=== PATIENT | female | born 1945 | race Caucasian/White ===

== ENCOUNTER 2017-07-15 16:10 | Outpatient (CLI) | payer MEDICARE | END 2017-07-15 16:11 | disposition home or self-care (01) | LOC: BICMAMMO 16:10 | PROVIDERS: ATTEND Internal Medicine | DX: N63.10 Unspecified lump in the right breast, unspecified quadrant (principal) | CPT/HCPCS: 76642; 77066; G0279 ==

== ENCOUNTER 2018-03-04 10:43 | Outpatient (CLI) | payer MEDICARE ==
--- NOTE | 2018-03-04 12:15 | ULT ---
LIMITED RIGHT BREAST ULTRASOUND: 03/04/2018 PROVIDED CLINICAL HISTORY: Follow up right breast mass. COMPARISON: 07/15/2017 and 06/16/2016 FINDINGS: There is a circumscribed, oval, wider than tall, hypoechoic mass again demonstrated at the 12 o'clock position of the right breast. This appears similar to the prior examinations. No shadowing or othe r concerning findings are evident. This may reflect an intramammary lymph node. IMPRESSION: BI-RADS category 3-Probably benign findings. Six-month follow-up examination is recommended, at which time the patient will be due for bilateral m ammography. POS: OFF
== END 2018-03-04 10:44 | disposition home or self-care (01) ==
LOC: BICULT 10:43
PROVIDERS: ATTEND Internal Medicine
DX: R92.8 Other abnormal and inconclusive findings on diagnostic imaging of breast (principal)

== ENCOUNTER 2019-05-13 14:25 | Outpatient (CLI) | payer MEDICARE ==
--- NOTE | 2019-05-13 15:33 | MMO ---
Bilateral MAMMO Bilat Diag [facility]. CLINICAL HISTORY: Patient is 73 years old and is seen for diagnostic exam. The patient has the following family history of breast cancer: mother, at age 78. The patient has no personal history of cancer. VIEWS: The views performed were: bilateral craniocaudal with tomosynthesis; bilateral mediolateral oblique with tomosynthesis; and bilateral mediolateral with tomosynthesis. FILMS COMPARED: The present examination has been compared to prior imaging studies performed at [facility] on 07/15/2017 and 05/13/2019, and at [facility] on 05/16/2016 and 06/16/2016. This study has been interpreted with the assistance of computer-aided detection. MAMMOGRAM FINDINGS: There are scattered fibroglandular densities. There are stable benign appearing calcifications seen in both breasts. There are no suspicious masses, suspicious calcifications, or new areas of architectural distortion. IMPRESSION: THERE IS NO MAMMOGRAPHIC EVIDENCE OF MALIGNANCY. A ROUTINE FOLLOW-UP MAMMOGRAM IN 1 YEAR IS RECOMMENDED. THE RESULTS OF THIS EXAM WERE SENT TO THE PATIENT. ACR BI-RADS Category 2 - Benign finding MAMMOGRAPHY NOTE: 1. A negative mammogram report should not delay a biopsy if a dominant of clinically suspicious mass is present. 2. Approximately 10% to 15% of breast cancers are not detected by mammography. 3. Adenosis and dense breasts may obscure an underlying neoplasm. Reported by: ALL CARNEY MD Electonically Signed: [id number]
--- NOTE | 2019-05-17 08:07 | MMO ---
Right US Breast Limited Rt. CLINICAL HISTORY: Patient is 73 years old and is seen for . VIEWS: The views performed were: . FILMS COMPARED: The present examination has been compared to prior imaging studies performed at [facility] on 07/15/2017 and 05/13/2019, and at [facility] on 05/16/2016 and 06/16/2016. This study has been interpreted with the assistance of computer-aided detection. RIGHT BREAST ULTRASOUND FINDINGS: There is a stable oval complex cyst seen in the right breast at 12 o'clock. On ultrasound, no suspicious findings are identified. IMPRESSION: THERE IS NO EVIDENCE OF MALIGNANCY. A ROUTINE FOLLOW-UP MAMMOGRAM IN 1 YEAR IS RECOMMENDED. THE RESULTS OF THIS EXAM WERE SENT TO THE PATIENT. ACR BI-RADS Category 2 - Benign finding MAMMOGRAPHY NOTE: 1. A negative mammogram report should not delay a biopsy if a dominant of clinically suspicious mass is present. 2. Approximately 10% to 15% of breast cancers are not detected by mammography. 3. Adenosis and dense breasts may obscure an underlying neoplasm. Reported by: ALL CARNEY MD Electonically Signed: [id number]
== END 2019-05-13 14:26 | disposition home or self-care (01) ==
LOC: BICMAMMO 14:25
PROVIDERS: ATTEND Internal Medicine
DX: R92.2 Inconclusive mammogram (principal)
CPT/HCPCS: 76642; 77066; G0279

== ENCOUNTER 2021-02-19 10:05 | Outpatient (CLI) | payer MEDICARE | END 2021-02-19 10:06 | disposition home or self-care (01) | LOC: BICMAMMO 10:05 | PROVIDERS: ATTEND Internal Medicine | DX: Z12.31 Encounter for screening mammogram for malignant neoplasm of breast (principal); M81.0 Age-related osteoporosis without current pathological fracture; Z80.3 Family history of malignant neoplasm of breast | CPT/HCPCS: 77063; 77067; 77080 ==

== ENCOUNTER 2021-10-13 10:26 | Inpatient (IN) | payer MEDICARE ==
[2021-10-13] MEDS ORDERED: Diltiazem 125 MG/25 ML ONE ×2 (10:46→10:48)
[2021-10-13 11:08] LABS: #Eosinphils 0.1 thou/uL (0.0-0.7); #Lymphocytes 2.1 thou/uL (1.20-3.40); #Monocytes 0.6 thou/uL (0.11-0.59); #Neutrophils 4.6 thou/uL (1.40-6.50); %Eosinophils 1.4 % (0.0-10.0); %Monocytes 8.1 % (0.0-10.0); %Neutrophils 62.5 % (42.0-75.0); Hemoglobin 17.2 g/dL (12.0-16.0); Mean Corpuscular HGB CONC 33.8 g/dL (32.0-36.0); Mean Corpuscular Hemoglobin 32.8 pg (27.0-31.0); Mean Corpuscular Volume 96.9 fL (78.0-98.0); Mean Platelet Volume 7.9 fL (7.4-10.4); Platelet Count 199 thou/uL (130-400); RBC Distribution Width 11.7 % (11.5-14.5); Red Blood Cell (RBC) Count 5.26 mill/uL (4.20-5.40); White Blood Cell (WBC) Count 7.4 thou/uL (4.8-10.8)
[2021-10-13 11:25] LABS: Digoxin Less than 0.15 ng/mL (0.8-2.0)
[2021-10-13 11:27] LABS: ALT (SGPT) 19 U/L (8-55); AST (SGOT) 22 U/L (5-34); Albumin 4.5 g/dL (3.4-4.8); Alkaline Phosphatase 70 U/L (40-110); Anion Gap 14 mmol/L (10-20); BUN (Urea Nitrogen) 11 mg/dL (9.8-20.1); Bilirubin, Total 1.4 mg/dL (0.2-1.2); CK (CPK) 62 U/L (29-168); Calc. Creatinine Clearance 0 mL/min (70-130); Calcium 10.8 mg/dL (7.8-10.44); Carbon Dioxide 25 mmol/L (23-31); Chloride 100 mmol/L (98-107); Estimated GFR 83; Globulin 3.1 g/dL (2.4-3.5); Glucose 115 mg/dL (83-110); Lipase 39 U/L (8-78); Magnesium 1.6 mg/dL (1.6-2.6); Potassium 3.2 mmol/L (3.5-5.1); Protein, Total 7.6 g/dL (5.8-8.1); Sodium 136 mmol/L (136-145)
[2021-10-13 11:29] LABS: PTT 31.7 sec (22.9-36.1)
[2021-10-13 11:30] LABS: CKMB 2.1 ng/mL (0-6.6)
[2021-10-13 11:31] LABS: D-Dimer Test 0.35 *mcg/mL (0.27-0.43)
[2021-10-13] MEDS ORDERED: Potassium Chloride 20 MEQ TAB ONE (11:55)
[2021-10-13] MEDS ORDERED: Enoxaparin Sodium 100 MG/ML SYRINGE ONE (12:54)
[2021-10-13] MEDS ORDERED: Acetaminophen 325 MG TAB PO PRN (13:46)
[2021-10-13 14:19] LABS: Troponin I 0.013 ng/mL (< 0.028)
[2021-10-13 17:37] LABS: Troponin I 0.022 ng/mL (< 0.028)
[2021-10-13 18:16] VITALS: BMI 29.3
[2021-10-13] MEDS: Enoxaparin Sodium 80 MG/0.8 ML SYRINGE SC SCH (20:55)
[2021-10-13] MEDS ORDERED: Enoxaparin Sodium 80 MG/0.8 ML SYRINGE SC SCH (21:00)
[2021-10-14 05:05] LABS: #Eosinphils 0.1 thou/uL (0.0-0.7); #Monocytes 0.6 thou/uL (0.11-0.59); #Neutrophils 3.3 thou/uL (1.40-6.50); %Basophils 0.3 % (0.0-1.0); %Eosinophils 1.9 % (0.0-10.0); %Lymphocytes 32.7 % (21.0-51.0); %Monocytes 10.1 % (0.0-10.0); Hemoglobin 15.3 g/dL (12.0-16.0); Mean Corpuscular HGB CONC 33.8 g/dL (32.0-36.0); Mean Corpuscular Hemoglobin 33.4 pg (27.0-31.0); Mean Corpuscular Volume 98.7 fL (78.0-98.0); Platelet Count 176 thou/uL (130-400); RBC Distribution Width 11.7 % (11.5-14.5); Red Blood Cell (RBC) Count 4.57 mill/uL (4.20-5.40); White Blood Cell (WBC) Count 6.1 thou/uL (4.8-10.8)
[2021-10-14 05:27] LABS: Anion Gap 11 mmol/L (10-20); BUN (Urea Nitrogen) 10 mg/dL (9.8-20.1); Calc. Creatinine Clearance 90 mL/min (70-130); Calcium 9.8 mg/dL (7.8-10.44); Carbon Dioxide 25 mmol/L (23-31); Chloride 108 mmol/L (98-107); Estimated GFR 93; Glucose 94 mg/dL (83-110); Potassium 3.5 mmol/L (3.5-5.1); Sodium 140 mmol/L (136-145)
[2021-10-14] MEDS: Enoxaparin Sodium 80 MG/0.8 ML SYRINGE SC SCH ×2 (09:09→21:35)
[2021-10-14] MEDS ORDERED: hydrALAZINE 20 MG/ML VIAL SLOW IVP PRN (16:01)
[2021-10-15 04:51] LABS: #Eosinphils 0.1 thou/uL (0.0-0.7); #Lymphocytes 1.8 thou/uL (1.20-3.40); #Monocytes 0.6 thou/uL (0.11-0.59); %Basophils 0.2 % (0.0-1.0); %Eosinophils 2.4 % (0.0-10.0); %Monocytes 10.8 % (0.0-10.0); %Neutrophils 54.5 % (42.0-75.0); Hemoglobin 15.2 g/dL (12.0-16.0); Mean Corpuscular HGB CONC 33.4 g/dL (32.0-36.0); Mean Corpuscular Hemoglobin 32.8 pg (27.0-31.0); Mean Corpuscular Volume 98.5 fL (78.0-98.0); Mean Platelet Volume 7.5 fL (7.4-10.4); Platelet Count 170 thou/uL (130-400); RBC Distribution Width 11.7 % (11.5-14.5); Red Blood Cell (RBC) Count 4.62 mill/uL (4.20-5.40); White Blood Cell (WBC) Count 5.5 thou/uL (4.8-10.8)
[2021-10-15 05:11] LABS: Anion Gap 11 mmol/L (10-20); BUN (Urea Nitrogen) 11 mg/dL (9.8-20.1); Calc. Creatinine Clearance 78 mL/min (70-130); Calcium 9.9 mg/dL (7.8-10.44); Carbon Dioxide 27 mmol/L (23-31); Chloride 109 mmol/L (98-107); Estimated GFR 86; Glucose 98 mg/dL (83-110); Potassium 3.7 mmol/L (3.5-5.1); Sodium 143 mmol/L (136-145)
[2021-10-15] MEDS: Enoxaparin Sodium 80 MG/0.8 ML SYRINGE SC SCH (08:18)
[2021-10-15] MEDS ORDERED: Losartan/Hydrochlorothiazide 100 mg/25 mg Tablet PO SCH (09:00)
[2021-10-15] MEDS ORDERED: Regadenoson 0.4 MG/5 ML SYRINGE ONE (09:03)
[2021-10-15 16:20] VITALS: BP 187/80; TEMP 98.7
[2021-10-15] MEDS ORDERED: hydrALAZINE 25 MG TAB PO SCH ×2 (17:15→21:00)
== END 2021-10-15 17:47 | disposition home or self-care (01) | DRG 310 ==
LOC: ERS 10:26 → ERHOLD 12:32 → 2SW 16:12
PROVIDERS: ADMIT Internal Medicine; ATTEND Internal Medicine
DX: I48.0 Paroxysmal atrial fibrillation (principal); Z20.822 Contact with and (suspected) exposure to COVID-19; I10 Essential (primary) hypertension; E78.5 Hyperlipidemia, unspecified; E87.6 Hypokalemia; R94.31 Abnormal electrocardiogram [ECG] [EKG]; I49.3 Ventricular premature depolarization; B30.3 Acute epidemic hemorrhagic conjunctivitis (enteroviral); Z79.899 Other long term (current) drug therapy; Z90.89 Acquired absence of other organs; Z90.49 Acquired absence of other specified parts of digestive tract
CPT/HCPCS: 36415; 71045; 78452; 80048; 80053; 80162; 82550; 82553; 83690; 83735; 83880; 84443; 84484; 85025; 85379; 85730; 93005; 93017; 93306; 94760; A9500; J1650; J2785; U0003; U0005

== ENCOUNTER 2021-11-20 17:37 | Emergency (ER) | payer MEDICARE ==
[2021-11-20] MEDS ORDERED: Acetaminophen 500 MG TAB ONE (18:45)
[2021-11-20 18:54] LABS: #Basophils 0.2 thou/uL (0.0-0.2); #Eosinphils 0.1 thou/uL (0.0-0.7); #Lymphocytes 0.4 thou/uL (1.20-3.40); #Monocytes 1.1 thou/uL (0.11-0.59); #Neutrophils 7.1 thou/uL (1.40-6.50); %Basophils 1.8 % (0.0-1.0); %Eosinophils 0.6 % (0.0-10.0); %Lymphocytes 4.1 % (21.0-51.0); %Monocytes 12.4 % (0.0-10.0); %Neutrophils 81.1 % (42.0-75.0); Mean Corpuscular HGB CONC 34.8 g/dL (32.0-36.0); Mean Corpuscular Volume 94.8 fL (78.0-98.0); Mean Platelet Volume 8.1 fL (7.4-10.4); Platelet Count 172 thou/uL (130-400); RBC Distribution Width 11.8 % (11.5-14.5); Red Blood Cell (RBC) Count 4.55 mill/uL (4.20-5.40); White Blood Cell (WBC) Count 8.7 thou/uL (4.8-10.8)
[2021-11-20 19:19] LABS: ALT (SGPT) 15 U/L (8-55); AST (SGOT) 19 U/L (5-34); Albumin 4.1 g/dL (3.4-4.8); Alkaline Phosphatase 64 U/L (40-110); Anion Gap 17 mmol/L (10-20); BUN (Urea Nitrogen) 12 mg/dL (9.8-20.1); Bilirubin, Total 0.7 mg/dL (0.2-1.2); Calc. Creatinine Clearance 0 mL/min (70-130); Calcium 10.9 mg/dL (7.8-10.44); Carbon Dioxide 24 mmol/L (23-31); Chloride 101 mmol/L (98-107); Estimated GFR 64; Globulin 2.7 g/dL (2.4-3.5); Glucose 113 mg/dL (83-110); Lipase 34 U/L (8-78); Protein, Total 6.8 g/dL (5.8-8.1); Sodium 139 mmol/L (136-145)
[2021-11-20 19:24] LABS: Potassium 2.6 mmol/L (3.5-5.1)
[2021-11-20] MEDS ORDERED: Potassium Chloride 20 MEQ TAB ONE (19:50)
[2021-11-20 20:17] LABS: Bacteria/HPF None Seen HPF (None Seen); Bilirubin Negative (Negative); Blood, Urine Negative (Negative); Clarity Clear (Clear); Glucose, Urine (Dipstick) Normal (Negative); Ketone, Urine Trace mg/dL (Negative); Leukocyte 25 Leu/uL (Negative); Nitrite Negative (Negative); Protein, Urine (Dipstick) Negative (Neg-Trace); RBC/HPF 0-3 HPF (0-3); Specific Gravity, Urine 1.012 (1.002-1.036); Squamous Epithelial None Seen HPF (0-3); Urobilinogen Normal mg/dL (Less than 2)
[2021-11-20 20:30] LABS: SARS-CoV-2 NAA Rapid Test DETECTED (NotDetected)
== END 2021-11-20 20:20 | disposition home or self-care (01) ==
LOC: ERS 17:37
DX: U07.1 COVID-19 (principal); E87.6 Hypokalemia; E78.5 Hyperlipidemia, unspecified; I10 Essential (primary) hypertension; Z79.899 Other long term (current) drug therapy
CPT/HCPCS: 71045; 83605; 83690; 83880; 84484; 87040; 87077; 87086; 87186; 93005; 96360; 99285; U0002; 36415; 80053; 81003; 81015; 84443; 85025

== ENCOUNTER 2022-01-13 10:46 | Outpatient (CLI) | payer MEDICARE ==
[2022-01-13 12:43] LABS: Anion Gap 13 mmol/L (10-20); BUN (Urea Nitrogen) 12 mg/dL (9.8-20.1); Calc. Creatinine Clearance 0 mL/min (70-130); Calcium 10.9 mg/dL (7.8-10.44); Carbon Dioxide 27 mmol/L (23-31); Chloride 105 mmol/L (98-107); Estimated GFR 80; Glucose 95 mg/dL (83-110); Potassium 4.1 mmol/L (3.5-5.1); Sodium 141 mmol/L (136-145)
== END 2022-01-13 10:47 | disposition home or self-care (01) ==
LOC: LABBT 10:46
PROVIDERS: ATTEND Internal Medicine Cardiovascular Disease
DX: Z01.812 Encounter for preprocedural laboratory examination (principal); Z51.81 Encounter for therapeutic drug level monitoring; I51.9 Heart disease, unspecified; I48.0 Paroxysmal atrial fibrillation; Z79.01 Long term (current) use of anticoagulants
CPT/HCPCS: 80048

== ENCOUNTER 2022-01-15 09:28 | Observation (INO) | payer MEDICARE ==
[2022-01-15] MEDS ORDERED: Heparin 25,000 units/D5W 500 ML ONE (11:01)
[2022-01-15] MEDS ORDERED: Protamine Sulfate 50 MG/5 ML VIAL ONE ×2 (11:01→15:50)
[2022-01-15] MEDS ORDERED: Heparin 10,000 UNITS/ 10 ML VIAL ONE (11:01)
[2022-01-15] MEDS ORDERED: Isoproterenol 0.2 MG/1 ML AMP ONE (11:01)
[2022-01-15] MEDS ORDERED: fentaNYL Citrate/PF 100 MCG/2 ML SYRINGE ONE (11:23)
[2022-01-15] MEDS ORDERED: Phenylephrine 10 MG/ML VIAL ONE (11:24)
[2022-01-15] MEDS ORDERED: Glycopyrrolate 0.2 MG/ML 5 ML SYRINGE ONE (12:02)
[2022-01-15] MEDS ORDERED: ePHEDrine 50 MG/ML VIAL ONE (12:02)
[2022-01-15] MEDS ORDERED: PROPOFOL 200 MG/20 ML VIAL ONE (12:02)
[2022-01-15] MEDS ORDERED: Rocuronium Bromide 10 MG/ML (10ML VIAL) ONE (12:02)
[2022-01-15] MEDS ORDERED: Ondansetron PF 4 MG/2 ML Vial ONE (12:02)
[2022-01-15] MEDS ORDERED: Amiodarone 150 MG/3 ML VIAL ONE ×3 (14:13→15:42)
[2022-01-15] MEDS ORDERED: SUGAMMADEX SODIUM 200 MG/2 ML VIAL ONE (15:50)
[2022-01-15] MEDS ORDERED: Furosemide 40 MG TAB PO PRN (16:01)
[2022-01-15] MEDS ORDERED: Ketorolac Tromethamine 30 MG/ML VIAL IVP PRN (16:01)
[2022-01-15] MEDS ORDERED: Potassium Chloride 20 MEQ TAB PO PRN (16:01)
[2022-01-15] MEDS ORDERED: Silver Sulfadiazine 1% Cream 20 GM TUBE TOP PRN (16:27)
[2022-01-15 18:13] VITALS: BMI 26.7
[2022-01-15] MEDS: Sucralfate 1 GM TAB PO SCH ×2 (18:51→20:22)
[2022-01-15] MEDS: Ondansetron PF 4 MG/2 ML Vial IVP PRN (20:21)
[2022-01-15] MEDS: Apixaban 5 MG TAB PO SCH (20:22)
[2022-01-15] MEDS ORDERED: Atorvastatin Calcium 20 MG TAB PO SCH (21:00)
[2022-01-15] MEDS ORDERED: Cyanocobalamin (Vitamin B-12) 1,000 MCG TAB PO SCH (21:00)
[2022-01-16 05:06] LABS: #Lymphocytes 0.8 thou/uL (1.20-3.40); #Monocytes 0.9 thou/uL (0.11-0.59); #Neutrophils 8.1 thou/uL (1.40-6.50); %Eosinophils 0.1 % (0.0-10.0); %Lymphocytes 7.8 % (21.0-51.0); %Neutrophils 83.1 % (42.0-75.0); Hemoglobin 12.1 g/dL (12.0-16.0); Mean Corpuscular HGB CONC 33.5 g/dL (32.0-36.0); Mean Corpuscular Hemoglobin 32.9 pg (27.0-31.0); Mean Corpuscular Volume 98.3 fl (78.0-98.0); Mean Platelet Volume 7.9 fL (7.4-10.4); Platelet Count 185 thou/uL (130-400); Red Blood Cell (RBC) Count 3.68 mill/uL (4.20-5.40); White Blood Cell (WBC) Count 9.7 thou/uL (4.8-10.8)
[2022-01-16 05:15] LABS: Anion Gap 12 mmol/L (10-20); BUN (Urea Nitrogen) 13 mg/dL (9.8-20.1); Calc. Creatinine Clearance 68 mL/min (70-130); Calcium 8.7 mg/dL (7.8-10.44); Carbon Dioxide 19 mmol/L (23-31); Chloride 110 mmol/L (98-107); Estimated GFR 82; Glucose 129 mg/dL (83-110); Magnesium 1.5 mg/dL (1.6-2.6); Potassium 3.3 mmol/L (3.5-5.1); Sodium 138 mmol/L (136-145)
[2022-01-16] MEDS ORDERED: Acetaminophen/Codeine 30-300mg Tablet PO PRN (05:45)
[2022-01-16] MEDS: Ondansetron PF 4 MG/2 ML Vial IVP PRN (06:01)
[2022-01-16] MEDS: Potassium Chloride 20 MEQ TAB PO SCH ×2 (08:46→10:06)
[2022-01-16] MEDS: Sucralfate 1 GM TAB PO SCH ×2 (08:47→12:02)
[2022-01-16] MEDS: Apixaban 5 MG TAB PO SCH (08:47)
[2022-01-16] MEDS ORDERED: Cholecalciferol 1,000 UNITS (25 MCG) TAB PO SCH (09:00)
[2022-01-16] MEDS ORDERED: hydrALAZINE 25 MG TAB PO SCH (09:00)
[2022-01-16] MEDS ORDERED: Losartan/Hydrochlorothiazide 100 mg/25 mg Tablet PO SCH (09:00)
[2022-01-16] MEDS ORDERED: Magnesium 2 GM/50 ML(in water) 2 GM in Premix Bag 1 BAG IVPB SCH (09:15)
[2022-01-16] MEDS ORDERED: Potassium Chloride 20 MEQ TAB PO SCH (09:15)
[2022-01-16 12:07] VITALS: BP 111/53; TEMP 98.1
[2022-01-19] MEDS ORDERED: FLU VACC QS2022-23(65YR UP)/PF 240 MCG/0.7 ML SYRINGE IM ONE (09:00)
== END 2022-01-16 12:07 | disposition home or self-care (01) ==
LOC: SDC 09:28 → 2SW 17:58
PROVIDERS: ADMIT Internal Medicine Cardiovascular Disease; ATTEND Internal Medicine Cardiovascular Disease
PROC: B244ZZ3 Ultrasonography of Right Heart, Intravascular (ICD-10-PCS; principal; 2022-01-15)
PROC: 02583ZZ Destruction of Conduction Mechanism, Percutaneous Approach (ICD-10-PCS; 2022-01-15)
PROC: 02K83ZZ Map Conduction Mechanism, Percutaneous Approach (ICD-10-PCS; 2022-01-15)
PROC: 4A023FZ Measurement of Cardiac Rhythm, Percutaneous Approach (ICD-10-PCS; 2022-01-15)
PROC: 4A0234Z Measurement of Cardiac Electrical Activity, Percutaneous Approach (ICD-10-PCS; 2022-01-15)
DX: I48.19 Other persistent atrial fibrillation (principal); I10 Essential (primary) hypertension; E78.00 Pure hypercholesterolemia, unspecified; I49.3 Ventricular premature depolarization; Z79.01 Long term (current) use of anticoagulants; Z79.899 Other long term (current) drug therapy
CPT/HCPCS: 80048; 83735; 85025; 85347 ×2; 93005 ×2; 93623; 93656; C1732; C1760; C1769; C1894; 36415; 93010; 96374; 96375; 96376; G0378; J0282; J1644; J1885; J2370; J2405; J2704; J2720; J3475; J3490

== ENCOUNTER 2022-07-17 10:47 | Outpatient (CLI) | payer MEDICARE | END 2022-07-17 10:48 | disposition home or self-care (01) | LOC: BICMAMMO 10:47 | PROVIDERS: ATTEND Internal Medicine | DX: Z12.31 Encounter for screening mammogram for malignant neoplasm of breast (principal) | CPT/HCPCS: 77063; 77067 ==

== ENCOUNTER 2023-04-14 09:59 | Outpatient (CLI) | payer MEDICARE | END 2023-04-14 10:00 | disposition home or self-care (01) | LOC: BICMAMMO 09:59 | PROVIDERS: ATTEND Internal Medicine Endocrinology, Diabetes & Metabolism | DX: Z13.820 Encounter for screening for osteoporosis (principal); E21.0 Primary hyperparathyroidism; M85.851 Other specified disorders of bone density and structure, right thigh | CPT/HCPCS: 77080 ==

== ENCOUNTER 2024-02-09 10:29 | Outpatient (CLI) | payer MEDICARE | END 2024-02-09 10:30 | disposition home or self-care (01) | LOC: BICMAMMO 10:29 | PROVIDERS: ATTEND Internal Medicine | DX: Z12.31 Encounter for screening mammogram for malignant neoplasm of breast (principal); Z80.3 Family history of malignant neoplasm of breast; N64.89 Other specified disorders of breast | CPT/HCPCS: 77063; 77067 ==

== ENCOUNTER 2024-02-25 08:21 | Outpatient (CLI) | payer MEDICARE | END 2024-02-25 08:22 | disposition home or self-care (01) | LOC: BICMAMMO 08:21 | PROVIDERS: ATTEND Internal Medicine | DX: N64.89 Other specified disorders of breast (principal) | CPT/HCPCS: 77065; G0279 ==

== ENCOUNTER 2024-04-18 09:56 | Outpatient (CLI) | payer MEDICARE | END 2024-04-18 09:57 | disposition home or self-care (01) | LOC: BICMAMMO 09:56 | PROVIDERS: ATTEND Internal Medicine Endocrinology, Diabetes & Metabolism | DX: M85.851 Other specified disorders of bone density and structure, right thigh (principal); M81.0 Age-related osteoporosis without current pathological fracture | CPT/HCPCS: 77080 ==